=== PATIENT | male | born 1955 | race Caucasian/White ===

== ENCOUNTER 2019-08-23 11:26 | Emergency (ER) | payer OTHER ==
[~2019-08-23] VITALS: Ht 165.1 cm; Wt 79.4 kg
[~2019-08-23 11:26] MED LIST: FLEXERIL PO; HYDROCODONE-AP1 EAC6 PO; LIPITOR 20 MG T20 M1 PO; MEDROLDOSEPACK PO; NOHOMEMEDICATIONS; PRILOSEC OTC20 MG PO; PRINIVIL20 M1 PO; ROBAXIN 750 MG750 M1 PO
[2019-08-23 11:52] LABS: ABSOLUTE BASOPHILS 0.1 thou/uL (0.0-0.2); ABSOLUTE EOSINOPHILS 0.1 thou/uL (0.0-0.7); ABSOLUTE LYMPHOCYTES 1.4 thou/uL (0.8-5.3); ABSOLUTE MONOCYTES 0.6 thou/uL (0.0-1.2); ABSOLUTE NEUTROPHILS 10.3 thou/uL (1.6-8.1); BASOPHILS 0.5 %; EOSINOPHILS 0.7 %; HEMATOCRIT 42.8 % (42.0-52.0); HEMOGLOBIN 14.8 gm/dL (14.0-18.0); LYMPHOCYTES 11.1 %; MCH 32.9 pg (26.0-34.0); MCHC 34.5 g/dL (28.0-37.0); MCV 95.4 fL (80.0-100.0); MONOCYTES 4.6 %; MPV 7.5 fl. (7.2-11.1); NUCLEATED RBCS 0 /100WBC; PLATELET COUNT* 273 thou/uL (150-400); POLYS 83.1 %; RBC 4.49 mil/uL (4.50-6.00); RDW-CV 12.8 % (10.5-14.5); WBC 12.4 thou/uL (4.0-11.0)
[2019-08-23 12:04] LABS: CALCIUM 9.5 mg/dL (8.5-10.1); CREATININE 1.1 mg/dL (0.6-1.3); POTASSIUM 4.5 mmol/L (3.5-5.1)
[2019-08-23 12:08] LABS: ALBUMIN 4.2 g/dL (3.4-5.0); TOTAL BILIRUBIN 0.4 mg/dL (<0.1-1.0); TOTAL PROTEIN 8.1 g/dL (6.4-8.2)
[2019-08-23 14:43] LABS: URINE BILIRUBIN NEGATIVE (Negative); URINE BLOOD NEGATIVE (Negative); URINE CLARITY CLEAR; URINE COLOR YELLOW; URINE GLUCOSE-RANDOM NEGATIVE (Negative); URINE KETONES TRACE (Negative); URINE LEUKOCYTES-REFLEX NEGATIVE (Negative); URINE NITRITE-REFLEX NEGATIVE (Negative); URINE PROTEIN NEGATIVE (Negative); URINE UROBILINOGEN 0.2 E.U./dl (0.2-1.0)
[2019-08-23] MEDS ORDERED: TYLENOL WITH CO1 TA1 PO (14:52)
[2019-08-23] MEDS ORDERED: DOXYCYCLINE 10100 MG PO (14:52)
[2019-08-23] MEDS ORDERED: ANUCORT-HC25 MG RECTAL (14:52)
[2019-08-23 15:05] VITALS: BP 128/66
== END 2019-08-23 15:07 | disposition home or self-care (01) ==
LOC: M.ERS 11:26
PROVIDERS: Physician Assistant
DX: K62.89 Other specified diseases of anus and rectum (principal); N43.3 Hydrocele, unspecified; I10 Essential (primary) hypertension